=== PATIENT | female | born 2000 | race Caucasian/White ===

== ENCOUNTER 2025-08-22 23:14 | Emergency (ER) | payer SELFPAY ==
[2025-08-22 23:24] VITALS: BP 134/73; PULSE 100; RESP 20; TEMP 36.9; O2SAT 99; BMI 25.8
--- NOTE | 2025-08-22 23:32 | ED_ITS ---
Discharge Plan Disposition Patient Disposition: Home, Self-Care Prescriptions Prescriptions: New ondansetron HCl 4 mg tablet 4 mg PO Q8H PRN (Reason: nausea and vomiting) 5 Days Qty: 30 0RF sulfamethoxazole-trimethoprim 800-160 mg tablet 1 tab PO BID 7 Days Qty: 14 0RF doxycycline hyclate 100 mg tablet 100 mg PO BID 7 Days Qty: 14 0RF Referrals Follow up/Referrals: Provider,Referral, MD [Primary Care Provider, Medical] - See instructions Activity Restrictions/Add. Instructions Additional Instructions/Restrictions: Please take antibiotics as prescribed. Recommend follow-up with [facility] and with urology for further assessment of your frequent UTIs and vaginal discharge. Will call if your STD screening is positive. Clinical Impressions Clinical Impression: Pyelonephritis, Vaginal discharge, Chlamydia infection Instructions Patient Instructions: DI for Acute Abdominal Pain Print Language Print Language: Lithuanian Discharge ED Provider: Carlito Duenas General Adult HPI General Chief complaint: Abdominal Pain Stated complaint: vaginal, back pain Time Seen by Provider: 08/22/25 23:32 Mode of Arrival: Ambulatory Source of Information: Patient Description of Symptoms (Recalled from ER Triage Doc. by RN): Pt states she has been treated for multiple UTIS with no idea of the cause. NOw having back pain and low abd pain History of Present Illness HPI narrative: 24-year-old female with history of recurrent UTIs presents for dysuria, vaginal discharge, back pain. Symptoms have been ongoing for a few hours. She reports the back pain is bilateral, fluctuates [id number]. Her last UTI was about a month ago. She denies any known history of resistant UTIs. She has not had an evaluation for possible causes of her recurrent UTI with urology. She has not had any abdominal surgery. She reports that she is having some vaginal discharge. She has had discharge in the past but this is greenish tinged which is new for her. She has had yeast infections and chlamydia in the past for which she has been treated. She does not report any new concern for STDs. She has no history of kidney stones. She has had CT imaging before that did not show anything. Related Data Previous Rx's ?Medication ?Instructions ?Recorded doxycycline hyclate 100 mg tablet 100 mg PO BID 7 days #14 tabs 08/23/25 ondansetron HCl 4 mg tablet 4 mg PO Q8H PRN nausea and 08/23/25 vomiting 5 days #30 tabs sulfamethoxazole 800 1 tab PO BID 7 days #14 tabs 08/23/25 mg-trimethoprim 160 mg tablet Allergies Allergy/AdvReac Type Severity Reaction Status Date / Time No Known Allergies Allergy Verified 08/22/25 23:28 [facility] Disclaimer: The information contained in this section may have been updated after the patient was seen, as this information can be updated by other users. Social History Smoking Status: Never smoker alcohol intake: never current occupational status: other Travel in the last 8 weeks?: None ROS Obtained: Yes All systems reviewed & no additional complaints except as documented Physical Exam General General appearance: alert and in no apparent distress Head Head exam: atraumatic and normocephalic Eye Eye exam: Present normal appearance, PERRL and EOMI ENT ENT exam: Present normal oropharynx and normal external ear exam Neck Neck exam: Present normal inspection and full ROM Chest Chest inspection: Present normal inspection and symmetric chest wall rise; Absent tenderness Respiratory Respiratory exam: Present normal lung sounds bilaterally; Absent respiratory distress Cardiovascular Cardiovascular exam: Present regular rate and normal rhythm Abdominal Exam Abdominal exam: Present soft; Absent distention, tenderness or guarding Extremities Exam Extremities exam: Present normal inspection; Absent edema or joint swelling Back Exam Back exam: Present normal inspection; Absent tenderness, CVA tenderness (R) or CVA tenderness (L) Neurological Exam Neurological exam: Present alert and oriented X3; Absent motor sensory deficit Psychiatric Psychiatric exam: Present normal affect and normal mood Skin Skin exam: Present warm, dry and normal color Lymphatic Lymphatic Findings: no adenopathy Medical Decision Making Medical Records Medical records reviewed: Yes I reviewed the patient's medical records. Screening: Per USPSTF and CDC recommendations, given the prevalence of disease in our region, it is our hospital?s policy to screen for HIV and viral Hepatitis for all patients aged 18 and over and those with ongoing risk factors. Bridger Inquiry Pt receiving controlled substance: No Bridger was queried for this patient: No Vital Signs: 08/22/25 23:24 08/23/25 01:08 Temperature 98.5 F 98.4 F Temperature Source Oral Oral Pulse Rate 94 H Pulse Rate [Right Radial] 100 H Respiratory Rate 20 20 Blood Pressure 113/71 Blood Pressure [Right Arm] 134/73 Blood Pressure Mean [Right Arm] 93 Blood Pressure Source Automatic Cuff Blood Pressure Source [Right Arm] Automatic Cuff Blood Pressure Position Sitting Blood Pressure Position [Right Arm] Sitting 02 Sat by Pulse Oximetry 99 Oxygen Delivery Method Room Air Room Air Lab Data Lab results reviewed: Yes I reviewed the patient's lab results. Lab Results 08/22/25 23:25: Urine Color Yellow, Urine Appearance Sl cloudy, Urine pH 6.0, Ur Specific [place] 1.025, Urine Protein Negative, Urine Glucose (UA) Negative, Urine Ketones Negative, Urine Blood Trace-i, Urine Nitrate Negative, Urine Bilirubin Negative, Urine Urobilinogen 0.2, Ur Leukocyte Esterase 2+ A, Urine RBC Occasional, Urine WBC 10-20, Ur Squamous Epith Cells 3-5, Urine Bacteria 2+, Ur C. trach DNA (PCR) Positive A, U N.gonorrhoeae DNA PCR Negative, T. vaginalis (PCR) Negative 08/22/25 23:40: WBC 12.6 H, RBC 4.68, Hgb 13.3, Hct 39.5, MCV 84.4, MCH 28.4, MCHC 33.7, RDW 14.1, Plt Count 256, MPV 10.8 H, Neut % (Auto) 60.7, Lymph % (Auto) 29.5, [place] % (Auto) 8.0, Eos % (Auto) 1.2, Baso % (Auto) 0.3, Neut # (Auto) 7.7, Lymph # (Auto) 3.7, [place] # (Auto) 1.0, Eos # (Auto) 0.2, Baso # (Auto) 0.0, Sodium 138, Potassium 4.3, Chloride 104, Carbon Dioxide 20 L, Anion Gap 18.3 H, BUN 12, Creatinine 0.80, Estimated Creat Clear 134, Estimated GFR 90, Est GFR ( Amer) 109, Glucose 91, Calcium 9.6, Total Bilirubin 0.9, AST 33, ALT 26, Alkaline Phosphatase 101, Total Protein 7.7, Albumin 4.8, Globulin 2.9, Albumin/Globulin Ratio 1.7, Serum HCG, Qual Negative 08/22/25 23:40 08/22/25 23:40 Orders (Tests/Meds): ED MEDICATIONS Discontinued Medications Generic Name Dose Route Start Last Admin Trade Name Freq PRN Reason Stop Dose Admin Acetaminophen 1,000 mg 08/22/25 23:38 08/22/25 23:53 Acetaminophen 500mg Tab PO 08/22/25 23:39 1,000 mg ONCE ONE Administration Fluconazole 200 mg 08/23/25 00:56 Fluconazole 200mg Tablet PO 08/23/25 00:57 DAILY ONE Ondansetron HCl 4 mg 08/22/25 23:38 08/22/25 23:53 Ondansetron 4mg/2ml Vial IV 08/22/25 23:39 4 mg ONCE ONE Administration Trimethoprim/Sulfamethoxazole 1 each 08/23/25 00:56 Sulfa/Trimethoprim 1 Tablet PO 08/23/25 00:57 ONCE ONE ORDERS Category Date Time Status CBC w/Auto Diff [Complete Blood Count Auto Diff] Stat Lab 08/22/25 23:40 Completed CMP [Comprehensive Metabolic Panel] Stat Lab 08/22/25 23:40 Completed HCG Qualitative, Serum Stat Lab 08/22/25 23:40 Completed UA [Urinalysis and Microscopic] Stat Lab 08/22/25 23:25 Completed Urine Chlam/Gono/Trich ([facility]) Stat Lab 08/22/25 23:25 Completed Urine Culture Stat Micro 08/22/25 23:25 Received Medical Decision Narrative: 24-year-old female with history of prior chlamydia infection, frequent UTIs, yeast infections presents for dysuria and vaginal discharge for the last few hours with associated back pain. History was obtained via interactive discussion with patient. On arrival, patient is [afebrile, hemodynamically stable, satting appropriately, alert, oriented x4, GCS 15], moving all extremities spontaneously. Full physical exam performed and significant for no significant flank tenderness on exam Differential includes but is not limited to UTI, pyelonephritis, kidney stone, STD, yeast infection. Patient was given Tylenol, Zofran for symptomatic management and correction of underlying abnormalities. Workup initiated including CBC CMP wet prep, urine STDs, UA. On re-evaluation, patient [remains afebrile, HD stable.] Laboratory workup independently interpreted by me and significant for findings consistent with urinary tract infection. Wet prep was negative.. CT imaging was considered, but deemed unnecessary due to no flank tenderness, no significant RBCs to suggest kidney stone. Given patient history, exam and workup, patient's presentation most likely represents pyelonephritis and possible yeast infection. Patient was discharged with STD testing pending with prescription for Bactrim for treatment of urinary tract infection as well as a dose of fluconazole for possible yeast infection. After discharge, patient's chlamydia results returned positive. I attempted to call her twice to inform her but there was no answer. I sent a prescription for doxycycline for treatment of chlamydia. The day team will call her again to let her know that she needs to be treated and that her sexual partners need to be treated. Procedures Risk/Benefits of Procedure(s) Were Explained: Yes Critical Care Critical Care Time Critical Care Time: No
[2025-08-22 23:49] LABS: Microscopic, Urine URINE MICROSCOPIC (MICROSCOPIC)
[2025-08-22 23:50] LABS: Bilirubin,Urine Negative (Negative); Color,Urine YELLOW (Yellow); Glucose,Urine (UA) Negative (Negative); Ketones,Urine Negative (Negative); Leukocyte Esterase,Urine 2+ (Negative); PH,Urine 6.0 (5.0-8.5); Protein,Urine Negative (Negative); Specific Gravity, Urine 1.025 (1.005-1.030); Urobilinogen,Urine 0.2 EU/dl (0.2)
[2025-08-22] MEDS: ACETAMINOPHEN 500MG TAB 1000 MG PO (23:53)
[2025-08-22] MEDS: ONDANSETRON 4MG/2ML VIAL 4 MG IV (23:53)
[2025-08-22 23:55] LABS: Hematocrit 39.5 % (37.0-47.0); Hemoglobin 13.3 g/dL (12.2-16.2); Immature Granulocytes % 0.3 %; Mean Corpuscular HGB Conc 33.7 g/dL (31.8-35.4); Mean Corpuscular Hemoglobin 28.4 pg (27.0-31.2); Mean Corpuscular Volume 84.4 fl (81-99); Nucleated Red Blood Cells % 0 %; Platelet Count 256 K/mm3 (142-424); Red Blood Count 4.68 M/mm3 (4.20-5.40); Red Cell Distribution Width-SD 43.3 fL; White Blood Count 12.6 K/mm3 (4.8-10.8)
[2025-08-23 00:03] LABS: Bacteria,Urine 2+ /lpf; RBC,Urine Occasional #/hpf (0-3)
[2025-08-23 00:04] LABS: Alanine Aminotransferase 26 U/L (12-78); Albumin Level 4.8 g/dl (3.5-5.0); Albumin/Globulin Ratio 1.7 (1.1-1.8); Alkaline Phosphatase 101 U/L (38-126); Anion Gap 18.3 mEq/L (5-15); Aspartate Amino Transferase 33 U/L (14-36); Bilirubin,Total 0.9 mg/dl (0.2-1.3); Blood Urea Nitrogen 12 mg/dl (7-17); Calcium 9.6 mg/dl (8.4-10.2); Carbon Dioxide 20 mmol/L (22.0-30.0); Chloride 104 mmol/L (98-107); Creatinine Clearance Estimated 134 mL/min (50-200); Creatinine,Serum 0.80 mg/dl (0.52-1.04); Estimated Glomerular Filt Rate 90 ml/min (>60); GFR (African American) 109 ML/MIN (>60); Globulin 2.9 g/dL (1.3-3.2); Glucose 91 mg/dl (74-100); HCG Qualitative, Serum Negative (Negative); Potassium 4.3 mmoL/L (3.5-5.1); Sodium 138 mmol/L (136-145); Total Protein,Serum 7.7 g/dl (6.3-8.2)
[2025-08-23 01:08] VITALS: BP 113/71; PULSE 94; RESP 20; TEMP 36.9; O2SAT 99
--- NOTE | 2025-08-23 16:13 | PC.NURSE ---
I notified the pt of her positive chlamydia results
== END 2025-08-23 01:12 | disposition home or self-care (01) ==
LOC: ER 08-23 01:02
PROVIDERS: Emergency Provider Emergency Medicine
DX: N10 Acute pyelonephritis (principal); A74.9 Chlamydial infection, unspecified; R30.0 Dysuria
CPT/HCPCS: 80053; 81001; 84703; 85025; 87086; 87210; 87491; 87591; 87661; 96374; 99284; J2405

== ENCOUNTER 2025-08-29 09:42 | Emergency (ER) | payer SELFPAY ==
[2025-08-29 09:49] VITALS: BP 178/107; PULSE 79; RESP 18; TEMP 36.6; O2SAT 99; BMI 27.3
[2025-08-29 09:57] LABS: Microscopic, Urine URINE MICROSCOPIC (MICROSCOPIC)
[2025-08-29 09:58] LABS: Bilirubin,Urine Negative (Negative); Color,Urine YELLOW (Yellow); Glucose,Urine (UA) Negative (Negative); Ketones,Urine Negative (Negative); Leukocyte Esterase,Urine 3+ (Negative); PH,Urine 6.0 (5.0-8.5); Protein,Urine Negative (Negative); Specific Gravity, Urine 1.020 (1.005-1.030); Urobilinogen,Urine 0.2 EU/dl (0.2)
[2025-08-29 10:01] VITALS: BP 145/104; PULSE 76; O2SAT 98
--- NOTE | 2025-08-29 10:09 | ED_ITS ---
<Statement entered by Liu Patel DO - 08/30/25 16:49> I was consulted by the RAMANDEEP, and we discussed the complexity of problems being addressed. I approved the treatment and management plan for this patient's care in the emergency department, thus performing a substantive portion of the medical decision making. This is a 24-year-old female patient who had presented to the emergency department last week for evaluation of dysuria. At that time she was sent home with Bactrim and doxycycline and subsequently had results come back positive for chlamydia infection. She was taking 2 pills of doxycycline and 2 pills of Bactrim at the same time in the morning and would subsequently vomit these up and is now presenting with identical symptoms. My suspicion is that she was likely not absorbing any of these medications and given that these medications were not being absorbed they were obviously not controlling her symptoms. We ultimately decided to give her Macrobid for a urinary tract infection as well as doxycycline for treatment of chlamydia. Return precautions were given and all parties were agreeable with the plan Liu Patel DO Discharge Plan Disposition Patient Disposition: Home, Self-Care Prescriptions Prescriptions: New doxycycline hyclate 100 mg capsule 100 mg PO BID 10 Days Qty: 20 0RF nitrofurantoin monohyd/m-cryst [Macrobid] 100 mg capsule 100 mg PO BID 7 Days Qty: 14 0RF Rx Instructions: must administer with a meal/food No Action ondansetron HCl 4 mg tablet 4 mg PO Q8H PRN (Reason: nausea and vomiting) 5 Days Qty: 30 0RF sulfamethoxazole-trimethoprim 800-160 mg tablet 1 tab PO BID 7 Days Qty: 14 0RF doxycycline hyclate 100 mg tablet 100 mg PO BID 7 Days Qty: 14 0RF Referrals Follow up/Referrals: Provider,Referral, MD [Primary Care Provider, Medical] - See instructions Activity Restrictions/Add. Instructions Additional Instructions/Restrictions: Increase fluids and rest. Take meds as directed. They are both twice a day. Clinical Impressions Clinical Impression: Urinary tract infection Instructions Patient Instructions: DI for Urinary Tract Infection (UTI) Print Language Print Language: Burkinan Discharge ED Provider: Liu Patel General Adult HPI General Chief complaint: Urogenital-Female Stated complaint: possible UTI, pain Time Seen by Provider: 08/29/25 10:01 Mode of Arrival: Ambulatory Source of Information: Patient Description of Symptoms (Recalled from ER Triage Doc. by RN): Reports she was seen last week and diagnosed with a UTI. States that she recently noticed she has been taking her antibiotic incorrectly. Stating instead of taking it twice a day she has been taking both doses together every morning. States that she has a continuous feeling of needing to urinate and complaint of vomiting and nausea. Denies any other symptoms at this time. History of Present Illness HPI narrative: 24-year-old female presents to the ED today for complaint of vomiting and continued burning with urination. She has been taking her antibiotic all and 1 dose rather than twice a day as directed. She continues to feel like she has to urinate. Denies any other symptoms. No fevers, chills, back pain or any other symptoms. Related Data Previous Rx's ?Medication ?Instructions ?Recorded doxycycline hyclate 100 mg tablet 100 mg PO BID 7 days #14 tabs 08/23/25 ondansetron HCl 4 mg tablet 4 mg PO Q8H PRN nausea and 08/23/25 vomiting 5 days #30 tabs sulfamethoxazole 800 1 tab PO BID 7 days #14 tabs 08/23/25 mg-trimethoprim 160 mg tablet doxycycline hyclate 100 mg capsule 100 mg PO BID 10 da ys #20 caps 08/29/25 nitrofurantoin 100 mg PO BID 7 days #14 cap s 08/29/25 monohydrate/macrocrystals 100 mg capsule (Macrobid) Allergies Allergy/AdvReac Type Severity Reaction Status Date / Time No Known Allergies Allergy Verified 08/22/25 23:28 [facility] Disclaimer: The information contained in this section may have been updated after the patient was seen, as this information can be updated by other users. Social History (Updated 08/23/25 @ 04:40 by Carlito Duenas MD) Smoking Status: Never smoker alcohol intake: never current occupational status: other Travel in the last 8 weeks?: None Have you lived/traveled outside [place] in past 30 days?: No Contact w/someone who lives/traveled outside [place] past 30 days?: No Exposure to someone with infectious disease in past 14 days?: No Do you have a fever (greater than 100.4 F or 38 C)?: No Have you tested positive for COVID-19?: No Exposed to someone with COVID-19 in past 14 days?: No Do you have a sore throat?: No Do you have a cough?: No Do you have any weakness?: No Do you have any diarrhea?: No Are you experiencing any unusual bleeding?: No Do you have any muscle aches/pain?: No Do you have any abdominal pain?: No Are you experiencing loss of taste or smell?: No ROS Obtained: Yes Systems reviewed as appropriate & no additional complaints except as documented Constitutional Constitutional: Reports as per HPI Physical Exam General General appearance: alert Head Head exam: normocephalic Eye Eye exam: Present PERRL and EOMI ENT ENT exam: Present normal oropharynx and mucous membranes moist Neck Neck exam: Present full ROM and trachea midline Respiratory Respiratory exam: Present normal lung sounds bilaterally Cardiovascular Cardiovascular exam: Present regular rate, normal rhythm, normal heart sounds, +S1 and +S2 Abdominal Exam Abdominal exam: Present soft and normal bowel sounds Extremities Exam Extremities exam: Present full ROM and normal capillary refill Neurological Exam Neurological exam: Present alert, oriented X3 and normal gait Skin Skin exam: Present warm, dry and intact Medical Decision Making Medical Records Screening: Per USPSTF and CDC recommendations, given the prevalence of disease in our region, it is our hospital?s policy to screen for HIV and viral Hepatitis for all patients aged 18 and over and those with ongoing risk factors. Bridger Inquiry Pt receiving controlled substance: No Bridger was queried for this patient: No Vital Signs: 08/29/25 09:49 08/29/25 10:01 08/29/25 11:06 Temperature 97.9 F 98.7 F Temperature Source Oral Oral Pulse Rate 76 74 Pulse Rate [Radial] 79 Respiratory Rate 18 16 Blood Pressure 145/104 H 130/85 Blood Pressure [Right Arm] 178/107 H Blood Pressure Mean [Right Arm] 130 Blood Pressure Source Automatic Cuff Blood Pressure Source [Right Arm] Automatic Cuff Blood Pressure Position [Right Arm] Sitting 02 Sat by Pulse Oximetry 99 98 Oxygen Delivery Method Room Air Room Air Lab Data Lab Results 08/29/25 09:44: Urine Color Yellow, Urine Appearance Clear, Urine pH 6.0, Ur Specific [place] 1.020, Urine Protein Negative, Urine Glucose (UA) Negative, Urine Ketones Negative, Urine Blood Trace-i, Urine Nitrate Negative, Urine Bilirubin Negative, Urine Urobilinogen 0.2, Ur Leukocyte Esterase 3+ A, Urine RBC 5-10, Urine WBC 5-10, Ur Squamous Epith Cells 10-20, Urine Bacteria 3+ Orders (Tests/Meds): ED MEDICATIONS Discontinued Medications Generic Name Dose Route Start Last Admin Trade Name Agnieszka PRN Reason Stop Dose Admin Ondansetron HCl 4 mg 08/29/25 10:06 08/29/25 10:14 Ondansetron 4mg Odt SL 08/29/25 10:07 4 mg ONCE ONE Administration ORDERS Category Date Time Status UA [Urinalysis and Microscopic] Stat Lab 08/29/25 09:44 Completed Urine Culture Stat Micro 08/29/25 09:44 Received Medical Decision Narrative: patient is a 24-year-old female presenting to the emergency department for evaluation of dysuria. Patient is hemodynamically stable and nontoxic-appearing upon arrival, afebrile. Differential diagnosis includes urinary tract infection. Workup will be conducted with urine. Initial inventions include nausea meds. Initial workup reviewed by me 3+ leukocytes. Micro was back and showed 3+ bacteria and 10-20 squames. I believe this was also contaminated. We will keep the doxycycline that patient was on for chlamydia. She is to take it twice a day as directed. We discussed this with patient. Patient will be stopping the Bactrim and starting Macrobid for treatment of the urinary tract infection. This will be twice a day. Dr. Patel also discussed with patient. Patient is safe for discharge home. Critical Care Critical Care Time Critical Care Time: No
[2025-08-29] MEDS: ONDANSETRON 4MG ODT 4 MG SL (10:14)
[2025-08-29 10:20] LABS: Bacteria,Urine 3+ /lpf
[2025-08-29 11:06] VITALS: BP 130/85; PULSE 74; RESP 16; TEMP 37.1; O2SAT 98
== END 2025-08-29 11:07 | disposition home or self-care (01) ==
PROVIDERS: Emergency Provider Student in an Organized Health Care Education/Training Program
DX: N39.0 Urinary tract infection, site not specified (principal); R30.0 Dysuria; R11.2 Nausea with vomiting, unspecified
CPT/HCPCS: 81001; 87086; 99283; Q0162